=== PATIENT | female | born 1950 | race Caucasian/White ===

== ENCOUNTER → 2019-05-27 | Outpatient (CLI) | payer MEDICARE, BC ==
--- NOTE | 2019-05-27 11:50 | Diagnostic Imaging Report ---
EXAM: US ABDOMEN COMPLETE DATE: 05/27/2019 10:56 AM INDICATION: Abnormal liver function tests. COMPARISON: None TECHNIQUE: Transverse and longitudinal sepulveda scale and color doppler sonographic images of the upper abdomen were obtained. FINDINGS: There is no evidence of fluid or masses seen in the area of clinical concern in the right lower quadrant. LIVER 12.8 cm in the right midclavicular line. Normal echogenicity of the liver with normal contour, no masses. SPLEEN 7.9 cm in maximum diameter. Normal echogenicity, no masses. GALLBLADDER Cholelithiasis with multiple echogenic gallstones. No gallbladder wall thickening, distension, pericholecystic fluid or sonographic Lopez's sign. Gallbladder wall measures 3 mm. BILE DUCTS No intra nor extra-hepatic biliary dilation. Common bile duct measures 4 mm PANCREAS: The visualized portions of the pancreas appear edematous. RIGHT KIDNEY: 11.3 cm Echogenicity: Normal Collecting System: No hydronephrosis Stones: None Cyst/Mass: None LEFT KIDNEY: 11.2 cm Echogenicity: Normal Collecting System: No hydronephrosis Stones: None Cyst/Mass: None VESSELS: Aorta: Visualized portions are within normal size limits Inferior Vena Cava: Visualized portions are normal Main Portal Vein: 0.9 cm, normal size with hepatopetal flow. FREE FLUID: None IMPRESSION: No focal liver lesion. Normal liver echogenicity and contour. Cholelithiasis without sonographic evidence of cholecystitis. Signed by: Anjelica Perez MD on 05/27/2019 11:47 AM
== END ==
LOC: US 10:43
PROVIDERS: ATTEND Internal Medicine Gastroenterology
DX: R74.0 Nonspecific elevation of levels of transaminase and lactic acid dehydrogenase [LDH] (principal); K30 Functional dyspepsia; E11.9 Type 2 diabetes mellitus without complications; Z71.3 Dietary counseling and surveillance; E66.9 Obesity, unspecified; Z12.11 Encounter for screening for malignant neoplasm of colon
CPT/HCPCS: 76700

== ENCOUNTER → 2022-12-02 | Outpatient (CLI) | payer MEDICARE, BC | LOC: MRI 11:03 | PROVIDERS: ATTEND Family Medicine | DX: M25.562 Pain in left knee (principal); M17.12 Unilateral primary osteoarthritis, left knee ==